=== PATIENT | female | born 1990 | race Caucasian/White ===

== ENCOUNTER 2018-03-29 00:38 | Emergency (ER) | payer MEDICAID, SELFPAY ==
[2018-03-29 00:41] VITALS: BP 133/93; PULSE 83; RESP 16; TEMP 36.6; O2SAT 100
--- NOTE | 2018-03-29 01:04 | W.ED.GENAD ---
Discharge Plan Disposition Patient Disposition: HOME Condition: Good Discharge Details Chief Complaint: Sorethroat Clinical Impression: Acute pharyngitis Primary Care Provider: Светлана Agee ED Provider: Juan A Ty Home Meds and New Rx's Prescriptions: No Action No Known Home Meds RF: 0 Discharge Instructions Instructions: Pharyngitis (ED) Additional Instructions: Rapid strep is negative. Culture has been sent. Rest and drink plenty of fluids. Salt water gargles and Cepacol lozenges will probably help with your sore throat. Ibuprofen and acetaminophen for discomfort. Return to the emergency department if you develop difficulty breathing, inability to swallow, persistent high fever, other concerns. Stand Alone Forms: Work Release Referrals: Светлана Agee [Primary Care Provider] - Medical Decision Making Patient is not febrile. She is in no distress. Oxygen saturations are 100%. She has erythema in the posterior oropharynx but no swelling or exudate. She does have cervical adenopathy. Centor criteria less then three. Rapid strep is negative. Would not treat at this point and will wait for culture. Discussed supportive care including fluids, gargles, lozenges, ibuprofen/acetaminophen. Return to ED for persistent high fever, difficulty breathing, inability to swallow. Follow-up with primary care next week if not getting better. HPI General Mode of arrival: ambulatory. Date/Time Provider Initiated Documentation: 03/29/18 00:50. Limitations to Documentation: no limitations. Information obtained by: patient. HPI Narrative: Patient presents to the emergency department with sore throat. Patient has had nasal congestion with very minimal cough for over a week. In the last day or two, she has been extremely fatigued. This afternoon she developed sore throat which has got worse overnight. She has a lot of nasal congestion. She has not had fever. She has not having difficulty breathing. She is able to swallow although it is uncomfortable. She has no rash. She has no nausea vomiting. Related Data Home Medications Medication Instructions Recorded Confirmed Unknown [No Known Home Meds] 03/29/18 03/29/18 Allergies Allergy/AdvReac Type Severity Reaction Status Date / Time No Known Allergies Allergy Unverified 03/29/18 00:43 General Stated Complaint: Sorethroat ODALIS: 4 Review of Systems Constitutional Denies chills, Reports fatigue, Denies fever(s), Denies headache(s), Reports malaise and Denies weakness Eyes Denies eye discharge and Denies eye pain ENT Denies otalgia, Denies facial pain, Denies headache(s), Denies hoarseness, Denies mouth lesions, Reports nasal congestion, Denies neck pain, Reports odynophagia, Reports post nasal drip, Reports sinus pressure, Reports sore throat and Denies throat swelling Cardiovascular Denies dyspnea Respiratory Denies cough and Denies dyspnea Gastrointestinal Denies abdominal pain, Denies nausea, Reports odynophagia and Denies vomiting Musculoskeletal Denies neck pain, Denies numbness and Denies tingling Neurologic Denies headache(s), Denies numbness, Denies tingling and Denies weakness Endocrine Reports fatigue Allergic/Immunologic Denies throat swelling PFSH History of section (Inactive) Social History Smoking/Tobacco Use Status: Former Tobacco Use Surgical History History of section (Inactive) Social History Smoking/Tobacco Use Status: Former Tobacco Use Exam Const General: cooperative, comfortable and no acute distress Orientation: alert and oriented x3 HENMT Head: normocephalic and atraumatic Ears: external ears normal and TM's normal bilaterally General nose exam: no nasal discharge Face and sinus: normal facial exam Mouth: oropharynx normal and moist mucous membranes Throat: tonsils normal, uvula midline, posterior oropharynx abnormal erythema; no edema and no exudates and no uvular edema Eyes Conjunctivae: conjunctivae normal Neck Neck: normal visual inspection, trachea midline, supple and lymphadenopathy Resp Effort & Inspection: normal respiratory effort Auscultation: clear to auscultation bilaterally Cardio Rate: regular rate Rhythm: regular rhythm Heart Sounds: S1 normal and S2 normal Skin Rashes: no rashes Neuro General: alert, oriented x3, no focal motor deficits and CN's II-XI intact bilaterally Course Vital Signs Temperature 97.9 F 03/29/18 00:41 Pulse 83 03/29/18 00:41 Respiratory Rate 16 03/29/18 00:41 Blood Pressure 133/93 H 03/29/18 00:41 Pulse Oximetry 100 03/29/18 00:41 Temperature 97.9 F 03/29/18 00:41 Temperature Source Skin 03/29/18 00:41 Pulse 83 03/29/18 00:41 Respiratory Rate 16 03/29/18 00:41 Respiratory Effort Non-Labored 03/29/18 00:42 Blood Pressure 133/93 H 03/29/18 00:41 Blood Pressure Position Sitting 03/29/18 00:41 Pulse Oximetry 100 03/29/18 00:41 Oxygen Delivery Method Room Air 03/29/18 00:41 Oxygen Flow Rate 0 03/29/18 00:41 Pain Level 7 03/29/18 00:41 Lab/Test Results Lab/Test Results: 03/29/18 00:50 Tonsil - Not Specified Streptococcus Screen ([facility]) - Pending POC Strep Test-[facility]EN(Rapid) Start: 03/29/18 00:50 Freq: Status: Active Protocol: Document 03/29/18 00:50 DARÍO (Rec: 03/29/18 00:50 DARÍO [id number]) Strep test-[facility]EN(Rapid)-POC POC-Strep test-ALEN (Rapid) Negative POC-Strep test-ALEN (Rapid) Negative
--- NOTE | 2018-03-29 01:17 | ED.GENADUL_ITS ---
Discharge Plan Disposition Patient Disposition: HOME Condition: Good Discharge Details Chief Complaint: Sorethroat Clinical Impression: Acute pharyngitis Primary Care Provider: Светлана Agee ED Provider: Juan A Ty Home Meds and New Rx's Prescriptions: No Action No Known Home Meds RF: 0 Discharge Instructions Instructions: Pharyngitis (ED) Additional Instructions: Rapid strep is negative. Culture has been sent. Rest and drink plenty of fluids. Salt water gargles and Cepacol lozenges will probably help with your sore throat. Ibuprofen and acetaminophen for discomfort. Return to the emergency department if you develop difficulty breathing, inability to swallow, persistent high fever, other concerns. Stand Alone Forms: Work Release Referrals: Светлана Agee [Primary Care Provider] - Medical Decision Making Patient is not febrile. She is in no distress. Oxygen saturations are 100%. She has erythema in the posterior oropharynx but no swelling or exudate. She does have cervical adenopathy. Centor criteria less then three. Rapid strep is negative. Would not treat at this point and will wait for culture. Discussed supportive care including fluids, gargles, lozenges, ibuprofen/ acetaminophen. Return to ED for persistent high fever, difficulty breathing, inability to swallow. Follow-up with primary care next week if not getting better. HPI General Mode of arrival: ambulatory . Date/Time Provider Initiated Documentation: 03/29/18 00:50 . Limitations to Documentation: no limitations . Information obtained by: patient . HPI Narrative: Patient presents to the emergency department with sore throat. Patient has had nasal congestion with very minimal cough for over a week. In the last day or two, she has been extremely fatigued. This afternoon she developed sore throat which has got worse overnight. She has a lot of nasal congestion. She has not had fever. She has not having difficulty breathing. She is able to swallow although it is uncomfortable. She has no rash. She has no nausea vomiting. Related Data Home Medications Medication Instructions Recorded Confirmed Unknown [No Known Home Meds] 03/29/18 03/29/18 Allergies Allergy/AdvReac Type Severity Reaction Status Date / Time No Known Allergies Allergy Unverified 03/29/18 00:43 General Stated Complaint: Sorethroat ODALIS: 4 Review of Systems Constitutional Denies chills, Reports fatigue, Denies fever(s), Denies headache(s), Reports malaise and Denies weakness Eyes Denies eye discharge and Denies eye pain ENT Denies otalgia, Denies facial pain, Denies headache(s), Denies hoarseness, Denies mouth lesions, Reports nasal congestion, Denies neck pain, Reports odynophagia, Reports post nasal drip, Reports sinus pressure, Reports sore throat and Denies throat swelling Cardiovascular Denies dyspnea Respiratory Denies cough and Denies dyspnea Gastrointestinal Denies abdominal pain, Denies nausea, Reports odynophagia and Denies vomiting Musculoskeletal Denies neck pain, Denies numbness and Denies tingling Neurologic Denies headache(s), Denies numbness, Denies tingling and Denies weakness Endocrine Reports fatigue Allergic/Immunologic Denies throat swelling PFSH History of section (Inactive) Social History Smoking/Tobacco Use Status: Former Tobacco Use Surgical History History of section (Inactive) Social History Smoking/Tobacco Use Status: Former Tobacco Use Exam Const General: cooperative, comfortable and no acute distress Orientation: alert and oriented x3 HENMT Head: normocephalic and atraumatic Ears: external ears normal and TM's normal bilaterally General nose exam: no nasal discharge Face and sinus: normal facial exam Mouth: oropharynx normal and moist mucous membranes Throat: tonsils normal, uvula midline, posterior oropharynx abnormal erythema; no edema and no exudates and no uvular edema Eyes Conjunctivae: conjunctivae normal Neck Neck: normal visual inspection, trachea midline, supple and lymphadenopathy Resp Effort & Inspection: normal respiratory effort Auscultation: clear to auscultation bilaterally Cardio Rate: regular rate Rhythm: regular rhythm Heart Sounds: S1 normal and S2 normal Skin Rashes: no rashes Neuro General: alert, oriented x3, no focal motor deficits and CN's II-XI intact bilaterally Course Vital Signs Temperature 97.9 F 03/29/18 00:41 Pulse 83 03/29/18 00:41 Respiratory Rate 16 03/29/18 00:41 Blood Pressure 133/93 H 03/29/18 00:41 Pulse Oximetry 100 03/29/18 00:41 Temperature 97.9 F 03/29/18 00:41 Temperature Source Skin 03/29/18 00:41 Pulse 83 03/29/18 00:41 Respiratory Rate 16 03/29/18 00:41 Respiratory Effort Non-Labored 03/29/18 00:42 Blood Pressure 133/93 H 03/29/18 00:41 Blood Pressure Position Sitting 03/29/18 00:41 Pulse Oximetry 100 03/29/18 00:41 Oxygen Delivery Method Room Air 03/29/18 00:41 Oxygen Flow Rate 0 03/29/18 00:41 Pain Level 7 03/29/18 00:41 Lab/Test Results Lab/Test Results: 03/29/18 00:50 Tonsil - Not Specified Streptococcus Screen ([facility]) - Pending POC Strep Test-[facility]EN(Rapid) Start: 03/29/18 00: 50 Freq: Status: Active Protocol: Document 03/29/18 00:50 DARÍO (Rec: 03/29/18 00:50 DARÍO [id number]) Strep test-[facility]EN(Rapid)-POC POC-Strep test-ALEN (Rapid) Negative POC-Strep test-ALEN (Rapid) Negative
== END 2018-03-29 01:09 | disposition home or self-care (01) ==
PROVIDERS: Emergency Provider Emergency Medicine; PCP Nurse Practitioner
DX: J02.9 Acute pharyngitis, unspecified (principal)
CPT/HCPCS: 87880; 99282; 87081

== ENCOUNTER 2018-08-16 07:51 | Emergency (ER) | payer MEDICAID, SELFPAY ==
[2018-08-16 07:57] VITALS: BP 146/79; PULSE 79; RESP 20; TEMP 36.7; O2SAT 98
[2018-08-16] MEDS: predniSONE 20 MG TAB 60 MG PO (08:04)
[2018-08-16 08:05] VITALS: RESP 4
[2018-08-16] MEDS: Albuterol/Ipratropium 3 ML UPD VIAL UPD (08:05)
--- NOTE | 2018-08-16 08:11 | ED.GENADUL_ITS ---
Discharge Plan Disposition Patient Disposition: HOME Condition: Good Discharge Details Chief Complaint: RespSymp Clinical Impression: URI with cough and congestion Primary Care Provider: Светлана Agee ED Provider: Rolan Paul Home Meds and New Rx's Prescriptions: New prednisone 50 MG tablet 50 mg PO DAILY Qty: 5 RF: 0 Discharge Instructions Instructions: Upper Respiratory Infection (ED) Additional Instructions: Please take the inhaler and steroids as directed. Please do not resume smoking. If you notice any worsening of your symptoms, or any new symptoms such as vomiting, diarrhea, fever, chills, shortness of breath, chest pain, numbness, weakness, or fainting , please return immediately to the emergency department for reevaluation. Please follow up with your primary care provider as soon as possible for reassessment and reevaluation. As always, it was a pleasure participating in your medical care today. Stand Alone Forms: Work Release Referrals: Светлана Agee [Primary Care Provider] - Medical Decision Making This is a pleasant 28-year-old female who presents with cough and congestion for the last 4 days. She denies any fever. She denies any concerning red flags suggestive of a PE or severe respiratory distress. She denies any fever. Her symptoms have been greater than 4 days, I do not think that there is any indication for active flu testing at this time. Physical exam demonstrates notable wheezes throughout, which corresponds well with her chronic smoking history and her symptoms suggestive of bronchitis and URI. She demonstrates no evidence of rales or rhonchi on exam, vital signs are notably reassuring with no tachypnea, tachycardia, or hypoxemia. Do not see any emergent indication for x-ray, laboratory work-up or CT scan at this time. With her notable wheezes we will give steroids and breathing treatments to improve this, we have recommended smoking cessation. Will reevaluate after breathing treatment. Due to her young age reassuring vital signs, no evidence of clinical pneumonia on exam or history, with her otherwise looking clinically well I do not think that there is an indication for immediate antibiotics or hospital admission at this time. Patient is feeling much better after breathing treatment and steroid. Vital signs are still notably reassuring. Bedside portable limited ultrasound demonstrates no evidence of B-lines, or gross infiltrate. Patient can be discharged home with close follow-up. We discussed red flags which return. She will be given an inhaler and prednisone for home use. We have instructed her on how to use the spacer I have extensively reviewed the treatment plan and discharge instructions with the patient. I have addressed all patient concerns at this time. The patient was made aware of what symptoms to monitor for that would warrant a return to the emergency department. Discussed the plan with the patient, they demonstrate verbal understanding and agreement with our assessment and plan at this time. HPI General Date/Time Provider Initiated Documentation: 08/16/18 07:55 . HPI Narrative: This is a 28-year-old female with no significant past medical history except for chronic tobacco abuse smoking half pack per day, who presents today for cough for the last 4 days. She describes it is relatively nonproductive and occasionally there is white sputum though. She denies any hemoptysis. She denies any chest pain, tearing sensation in her chest, fever, chills, vomiting. She does admit to occasional loose stool. 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 Denies PE risk factors such as recent long car rides, immobilization, recent surgery, prior history of DVT or PE, family history of PE or DVT, morbid obesity, exogenous estrogen and smoking, hemoptysis, history of cancer. She denies any history of early cardiac disease. She denies any history of asthma or regular inhaler use. She has no other complaints at this time. Related Data Home Medications Medication Instructions Recorded Confirmed prednisone 50 mg PO DAILY #5 tab 08/16/18 Previous Rx's Medication Instructions Recorded prednisone 50 mg PO DAILY #5 tab 08/16/18 Allergies Allergy/AdvReac Type Severity Reaction Status Date / Time No Known Allergies Allergy Unverified 03/29/18 00:43 General Stated Complaint: RespSymp ODALIS: 3 Review of Systems Review of Systems All systems reviewed & are unremarkable except as noted in HPI and below PFSH Social History Smoking/Tobacco Use Status: Current every day Tobacco Type: cigarettes Smoking cigarettes per day: 10 Alcohol Intake: current Alcohol Intake frequency: a few times a month Drug use: Daily Substance use type: marijuana Do you feel safe at home: Yes Do you feel safe in your relationship?: Yes Exam Narrative Exam Narrative: 1.Const: Well-nourished, Well-developed, appearing stated age 2.Eyes: PERRL, no conjunctival injection, and symmetrical lids. 3.ENT: Atraumatic external nose and ears. Moist MM. Neck: Symmetric, trachea midline, No thyromegaly. 4.CVS: +S1/S2, No murmurs or gallops. Peripheral pulses 2+ and equal in all extremities. Brisk capillary refill in all extremities. 5.RESP: Unlabored respiratory effort. Notable wheezes throughout, no rhonchi or rales. No intercostal retractions per 6.GI: Soft, Nontender/Nondistended, No hepatosplenomegaly. No guarding or rebound. 7.MSK: Normocephalic/Atraumatic, Extremities w/o deformity or ttp No cyanosis or clubbing, Normal movement of all extremities 8.Skin: Warm, Dry. No rashes or lesions. 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 Sensation grossly intact, no focal neurologic deficits. 10.Psych: (AAO) x3. Appropriate mood and affect Course Vital Signs Temperature 36.7 C 08/16/18 07:57 Pulse 79 08/16/18 07:57 Respiratory Rate 20 08/16/18 07:57 Blood Pressure 146/79 H 08/16/18 07:57 Pulse Oximetry 98 08/16/18 07:57 Temperature 36.7 C 08/16/18 07:57 Temperature Source Temporal Artery Scan 08/16/18 07:57 Pulse 79 08/16/18 07:57 Respiratory Rate 20 08/16/18 07:57 Respiratory Effort Nasal Flaring 08/16/18 07:59 Blood Pressure 146/79 H 08/16/18 07:57 Blood Pressure Position Sitting 08/16/18 07:57 Pulse Oximetry 98 08/16/18 07:57 Oxygen Delivery Method Room Air 08/16/18 07:57 Oxygen Flow Rate 0 08/16/18 07:57 Pain Level 0 08/16/18 07:57
[2018-08-16] MEDS: Albuterol HFA 8 GM 60 PUFF INH IH (08:51)
[2018-08-16] MEDS: Inhaler, Assist Device 1 EACH MC (08:52)
[2018-08-16 09:00] VITALS: BP 132/72; PULSE 76; RESP 18; TEMP 36.7; O2SAT 97
== END 2018-08-16 09:05 | disposition home or self-care (01) ==
PROVIDERS: Emergency Provider Student in an Organized Health Care Education/Training Program; PCP Nurse Practitioner
DX: J06.9 Acute upper respiratory infection, unspecified (principal); R05 Cough; F17.210 Nicotine dependence, cigarettes, uncomplicated
CPT/HCPCS: 94640; 99283; J7512; J7620

== ENCOUNTER 2018-11-28 14:32 | Emergency (ER) | payer MEDICAID, SELFPAY ==
[2018-11-28 14:37] VITALS: BP 109/71; PULSE 95; RESP 20; TEMP 36.7; O2SAT 100
--- NOTE | 2018-11-28 14:48 | DI.CT_ITS ---
SYMPTOM/DIAGNOSIS: RLQ PAIN ABDOMINAL AND PELVIC CT: 11/28 CT examination of the abdomen and pelvis was performed with a bolus infusion of 100 cc Omnipaque 350. Images obtained through the lung bases are unremarkable. There is question of mild hepatosplenomegaly. No focal hepatic or splenic abnormality seen. Pancreas appears normal. Gallbladder and bile ducts appear normal. Adrenals and kidneys appear normal. No evidence of urinary tract calcification or obstruction. Abdominal aorta is of normal diameter and no major vascular abnormality seen. Tiny fat containing umbilical hernia noted. No other significant abdominal wall hernia seen. No abdominal or pelvic adenopathy. Appendix is normal. No evidence of diverticulitis or bowel obstruction. TRANSLATOR structures appear intact as visualized. CONCLUSION: Negative abdominal and pelvic CT.
--- NOTE | 2018-11-28 14:50 | ED.GENADUL_ITS ---
Discharge Plan Disposition Patient Disposition: HOME Condition: Stable Discharge Details Chief Complaint: Abd Prob Clinical Impression: Abdominal pain Primary Care Provider: Светлана Agee ED Provider: [facility] Home Meds and New Rx's Prescriptions: No Action prednisone 50 MG tablet 50 mg PO DAILY Qty: 5 RF: 0 Discharge Instructions Instructions: Abdominal Pain (ED) Additional Instructions: Please return immediately to the emergency department if you develop any new or worsening symptoms or if you become otherwise concerned. It is extremely important that you call as soon as possible to make an appointment to be seen in follow-up this visit by your primary care doctor. Referrals: Светлана Agee [Primary Care Provider] - Discharge Data Discharge Date/Time-TO BE ENTERED AT DEPARTURE: 11/28/18 18:05 Medical Decision Making <Helen Castro MD - Last Filed: 12/01/18 21:53> Macie Luna is a 28-year-old woman with history of depression, x2, right inguinal hernia repair with mesh resented to the emergency department with 30 minutes of severe sudden onset right lower quadrant pain. On exam patient appears very uncomfortable. She has tenderness to palpation in the right lower quadrant, positive McBurney's point tenderness, positive rebound. Exam/history is not consistent with sepsis, acute aortic pathology. Concern for appendicitis versus kidney stone versus ovarian cyst rupture versus ovarian torsion versus ectopic versus other. [id number] bedside ultrasound with negative fast plan for screening labs, UA, urine , pelvic US (if neg CT abdomen/pelvis), IV, IV fluid hydration, IV morphine, telemetry. 15:42 Patient requested that she only be given 2 mg of morphine because she is not sure how will affect her she has not had in the past. Order was for 4 mg, 2 mg wasted by nursing. Patient with inadequate pain control after 2 mg of morphine, plan for 4 additional milligrams for a total of 6 mg. Appears more comfortable. Patient has not been able to urinate, awaiting hCG serum testing. Patient is hemodynamically stable. Plan for ultrasound, if negative likely CT. Patient reporting continued severe pain. Ultrasound negative plan for CT. CT negative for acute process. On reassessment patient reports that pain has resolved. Unclear etiology of pain at this time, possible passed stone versus bowel gas pain versus other. Awaiting urinalysis. Anticipating discharge, I had a lengthy discussion with the patient regarding return to emergency department precautions, importance of outpatient follow-up, and home care. Patient verbalized understanding the plan was amenable. All questions were answered. Prior to discharge clear plan for outpatient follow-up was established. Patient signed out to [facility] Le with urinalysis pending. Medical Records Medical records reviewed: Yes I reviewed the patient's medical records. Imaging Data Radiologic Study: Attestation: I personally reviewed and interpreted this imaging study as follows: Radiologist's impression: EXAM: US Pelvis Complete, Transabdominal EXAM DATE/TIME: 11/28/2018 4:03 PM CLINICAL HISTORY: 28 years old, female; Pelvic pain; Prior surgery; Surgery date: 6+ months; Surgery type: 2 c-sections; Hernia repair TECHNIQUE: Imaging protocol: Real-time transabdominal pelvic ultrasound with image documentation. Complete exam. COMPARISON: US PELVIS TRANSVAG 07/29/2015 3:41 PM FINDINGS: Uterus/cervix: The uterus measures 13.2 x 5.1 x 7.8 cm. The uterus is diffusely heterogeneous. No discrete mass. Endometrium 2.8 mm Right adnexa: Right ovary 2.7 x 1.3 x 1.8 cm 1.9 cm cyst in the right ovary Peak systolic velocity in the right ovary is 20 cm/s. Left adnexa: Left ovary 3.6 x 1.9 x 1.9 cm Peak systolic velocity in the left ovary is 20 cm/s Free fluid: None. Bladder: Normal. Right kidney: Right kidney 10.5 cm . No hydronephrosis Left kidney: Left kidney 11 cm No hydronephrosis Appendix: The appendix is not identified. IMPRESSION: No acute process EXAM: CT Abdomen and Pelvis With Contrast EXAM DATE/TIME: 11/28/2018 2:50 PM CLINICAL HISTORY: 28 years old, female; Other: Rlq pain; Prior surgery; Surgery date: 6+ months; Surgery type: Mesh surgery in 2011 TECHNIQUE: Imaging protocol: Axial computed tomography images of the abdomen and pelvis with intravenous contrast. Coronal and sagittal reformatted images were created and reviewed. Radiation optimization: All CT scans at this facility use at least one of these dose optimization techniques: automated exposure control; mA and/or kV adjustment per patient size (includes targeted exams where dose is matched to clinical indication); or iterative reconstruction. Contrast material: OMNIPAQUE 350;Contrast volume: 100 ml;Contrast route: IV; COMPARISON: CT ABD PELVIS WITH CONTRAST 02/05/2016 9:19 AM FINDINGS: Heart: Cardiomegaly Liver: Hepatomegaly 19 cm Gallbladder and bile ducts: Normal. No calcified stones. No ductal dilation. Pancreas: Normal. No ductal dilation. Spleen: Normal. No splenomegaly. Adrenals: Normal. No mass. Kidneys and ureters: Normal. No hydronephrosis. Stomach and bowel: Normal. No obstruction. No mucosal thickening. Appendix: Normal appendix Intraperitoneal space: Normal. No free air. No significant fluid collection. Vasculature: Normal. No abdominal aortic aneurysm. Lymph nodes: Normal. No enlarged lymph nodes. Bladder: Unremarkable as visualized. Reproductive: Unremarkable as visualized. Bones/joints: No acute fracture. No dislocation. Soft tissues: Unremarkable. IMPRESSION: No acute process Lab Data Lab results reviewed: Yes I reviewed the patient's lab results. Laboratory Tests Range/Units 11/28/18 11/28/18 11/28/18 15:15 15:15 15:15 WBC (4.4-10.8) k/cumm 10.37 RBC (4.00-5.20) m/cumm 5.07 Hgb (12.0-15.5) g/dL 13.8 Hct (36.0-46.0) % 41.9 MCV (80-95) fL 82.6 MCH (27.0-33.0) pg 27.2 MCHC (32.0-36.0) g/dL 32.9 RDW (11.7-14.6) % 14.1 Plt Count (130-400) x1000/uL 244 MPV (8.0-11.0) fL 11.5 H Immature Gran % 0.4 Neutrophils % 58.8 Lymphocytes % 34.4 Monocytes % 5.5 Eosinophils % 0.8 Basophils % 0.1 Absolute Neutrophils (1.2-6.7) k/cumm 6.10 Absolute Lymphocytes (1.2-3.4) k/cumm 3.57 H Absolute Monocytes (0.11-0.7) k/cumm 0.57 Absolute Eosinophils (0.0-0.7) k/cumm 0.08 Absolute Basophils (0.0-0.2) k/cumm 0.01 Sodium (136-145) mmol/L 138 Potassium (3.5-5.1) mmol/L 4.2 Chloride (98-107) mmol/L 102 Carbon Dioxide (21.0-32.0) mmol/L 23.7 Anion Gap (3-11) mmol/L 12.3 H BUN (7-18) mg/dL 11 Creatinine (0.55-1.02) mg/dL 0.76 Estimated GFR/1.73 m2 (mL/min/1.73m2) >= 60.00 Glucose (70-100) mg/dL 91 Calcium (8.5-10.1) mg/dL 9.2 Total Bilirubin (0.2-1.0) mg/dL 0.2 AST (15-37) U/L 13 L ALT (12-78) U/L 22 Alkaline Phosphatase (46-116) U/L 84 Total Protein (6.4-8.2) g/dL 7.5 Albumin (3.4-5.0) g/dL 4.0 Lipase (73-393) U/L 86 Beta HCG, Quant (1-3) mIU/mL Range/Units 11/28/18 15:15 WBC (4.4-10.8) k/cumm RBC (4.00-5.20) m/cumm Hgb (12.0-15.5) g/dL Hct (36.0-46.0) % MCV (80-95) fL MCH (27.0-33.0) pg MCHC (32.0-36.0) g/dL RDW (11.7-14.6) % Plt Count (130-400) x1000/uL MPV (8.0-11.0) fL Immature Gran % Neutrophils % Lymphocytes % Monocytes % Eosinophils % Basophils % Absolute Neutrophils (1.2-6.7) k/cumm Absolute Lymphocytes (1.2-3.4) k/cumm Absolute Monocytes (0.11-0.7) k/cumm Absolute Eosinophils (0.0-0.7) k/cumm Absolute Basophils (0.0-0.2) k/cumm Sodium (136-145) mmol/L Potassium (3.5-5.1) mmol/L Chloride (98-107) mmol/L Carbon Dioxide (21.0-32.0) mmol/L Anion Gap (3-11) mmol/L BUN (7-18) mg/dL Creatinine (0.55-1.02) mg/dL Estimated GFR/1.73 m2 (mL/min/1.73m2) Glucose (70-100) mg/dL Calcium (8.5-10.1) mg/dL Total Bilirubin (0.2-1.0) mg/dL AST (15-37) U/L ALT (12-78) U/L Alkaline Phosphatase (46-116) U/L Total Protein (6.4-8.2) g/dL Albumin (3.4-5.0) g/dL Lipase (73-393) U/L Beta HCG, Quant (1-3) mIU/mL < 1 L <SUZANNA Bueno - Last Filed: 11/28/18 17:33> Care transition to mysself from Dr. Castro with UA pending. Urinalysis without significant abnormality. No RBCs, negative for nitrites, negative for leukocyte esterase. Patient remains asymptomatic, plan to discharge to home. All of her questions and concerns were addressed, she is in agreement iwth this plan. HPI <Helen Castro MD - Last Filed: 12/01/18 21:53> General Mode of arrival: ambulatory . Date/Time Provider Initiated Documentation: 11/28/18 14:37 . Limitations to Documentation: no limitations . Information obtained by: patient, RN notes reviewed and old records reviewed . HPI Narrative: Macie Luna is a 28 y/o woman with history of depression, C- section x2, right sided inguinal hernia repair with mesh presenting to the emergency department with abdominal pain. Patient reports that she was at rest while here at work when she developed sudden onset sharp lower abdominal pain a proximally 30 minutes prior to arrival. Patient reports the pain is worse in the right lower quadrant that radiates to the left lower quadrant and around her back. Patient reports that she has never had similar symptoms in the past. No fever, no vomiting, no diarrhea, no constipation, no dysuria. Was previously in her usual state of health. Related Data Home Medications Medication Instructions Recorded Confirmed prednisone 50 mg PO DAILY #5 tab 08/16/18 Previous Rx's Medication Instructions Recorded prednisone 50 mg PO DAILY #5 tab 08/16/18 Allergies Allergy/AdvReac Type Severity Reaction Status Date / Time No Known Allergies Allergy Unverified 03/29/18 00:43 General Stated Complaint: Abd Prob ODALIS: 2 Review of Systems <Helen Castro MD - Last Filed: 12/01/18 21:53> Review of Systems Constitutional: denies fevers Eyes: denies eye pain ENT: denies facial pain, dental pain, sore throat Cardiovascular: denies chest pain Respiratory: denies SOB, cough GI: denies vomiting, diarrhea, reports abdominal pain : denies flank pain, dysuria MSK: denies back pain, neck pain, arthralgias, myalgias Skin: denies rash Neuro: denies headaches, numbness, weakness PFSH <Helen Castro MD - Last Filed: 12/01/18 21:53> Social History Smoking/Tobacco Use Status: Current every day Tobacco Type: cigarettes Alcohol Intake: current Alcohol Intake frequency: a few times a month Drug use: Daily Substance use type: marijuana Do you feel safe at home: Yes Do you feel safe in your relationship?: Yes Exam <Helen Castro MD - Last Filed: 12/01/18 21:53> Narrative Exam Narrative: Constitutional: well and [id number], appears uncomfortable but otherwise conversing normally HENT: head atraumatic/normocephalic/normal inspection, mucous membranes moist Eyes: conjunctiva normal, sclera normal, pupils 3mm b/l Neck: no stridor, normal ROM, trachea midline Chest: normal inspection Resp: normal work of breathing, LCTAB Cardio: normal rate, normal rhythm, no murmur appreciated GI: abdomen soft, non-distended, tender right lower quadrant/right pelvic area with positive McBurney's point tenderness and rebound Back: normal inspection, no rash Skin: warm, dry, normal color, no rash Neuro: alert, not altered, grossly non-focal, normal tone Ext: no edema Psych: normal mood, normal affect, normal behavior Course <Helen Castro MD - Last Filed: 12/01/18 21:53> Vital Signs Temperature 36.7 C 11/28/18 14:37 Pulse 95 H 11/28/18 14:37 Respiratory Rate 20 11/28/18 14:37 Blood Pressure 109/71 11/28/18 14:37 Pulse Oximetry 100 11/28/18 14:37 Temperature 36.7 C 11/28/18 14:37 Temperature Source Skin 11/28/18 14:37 Pulse 95 H 11/28/18 14:37 Respiratory Rate 20 11/28/18 14:37 Blood Pressure 109/71 11/28/18 14:37 Pulse Oximetry 100 11/28/18 14:37 Oxygen Delivery Method Room Air 11/28/18 14:37 Oxygen Flow Rate 0 11/28/18 14:37 Pain Level 10 11/28/18 14:37 Sign Out <Helen Castro MD - Last Filed: 12/01/18 21:53> Sign Out Data: Sign Out Comment: Patient signed out to Carlie Gonzalez at time of shift change with urinalysis pending Last updated by Helen Castro MD at 11/28/18 17:07
--- NOTE | 2018-11-28 14:59 | DI.US_ITS ---
SYMPTOM/DIAGNOSIS: RLQ PAIN, ? RIGHT OVARIAN TORSION PELVIC ULTRASOUND: 11/28 Pelvic ultrasound was performed transabdominally only. Please see accompanying data sheet for measurements of the pelvic structures. Uterus is unremarkable in appearance. No free fluid seen in the cul de sac. Ovaries grossly unremarkable by abdominal scanning criteria. Vascular flow to the ovaries appears symmetrical CONCLUSION: Transabdominal examination only. No gross pelvic abnormality. If there is a clinical suspicion of ovarian torsion transvaginal examination would be recommended.
[2018-11-28] MEDS: Ondansetron 4 MG/2 ML VIAL (15:01)
[2018-11-28] MEDS: Normal Saline 1,000 ML 1000 ML IV (15:01)
--- NOTE | 2018-11-28 15:21 | NUR.NOTE ---
Nursing Note: PT administered 2mg of Morphine IV. Pt stated that she was concerned about recieving 4mg at one time. MD hummel made aware. 2mg wasted with Quan ROMAN. Documented in Pyxis.
[2018-11-28 15:32] LABS: Abs Immature Grans 0.04 k/cumm (0.0-0.09); Absolute Basophil Count 0.01 k/cumm (0.0-0.2); Absolute Eosinophil Count 0.08 k/cumm (0.0-0.7); Absolute Lymphocyte Count 3.57 k/cumm (1.2-3.4); Absolute Monocyte Count 0.57 k/cumm (0.11-0.7); Basophils % 0.1; Eosinophils % 0.8; HCT 41.9 % (36.0-46.0); HGB 13.8 g/dL (12.0-15.5); Immature Grans % 0.4; Lymphocytes % 34.4; Mean Corp. HGB Concentration 32.9 g/dL (32.0-36.0); Mean Corpuscular Hemoglobin 27.2 pg (27.0-33.0); Mean Corpuscular Volume 82.6 fL (80-95); Mean Platelet Volume 11.5 fL (8.0-11.0); Monocytes % 5.5; Neutrophils % 58.8; Platelet Count 244 x1000/uL (130-400); RBC 5.07 m/cumm (4.00-5.20); RBC Distribution Width 14.1 % (11.7-14.6); White Blood Cell Count 10.37 k/cumm (4.4-10.8)
--- NOTE | 2018-11-28 15:34 | NUR.NOTE ---
Nursing Note: Per MD Castro request PT has recieved a total of 6mg IVP morphine.
[2018-11-28 15:51] LABS: Lipase 86 U/L (73-393)
[2018-11-28 15:54] LABS: ALT 22 U/L (12-78); AST 13 U/L (15-37); Alkaline Phosphatase 84 U/L (46-116); Anion Gap 12.3 mmol/L (3-11); BUN 11 mg/dL (7-18); Bilirubin, Total 0.2 mg/dL (0.2-1.0); CO2 23.7 mmol/L (21.0-32.0); CREATININE 0.76 mg/dL (0.55-1.02); Calcium 9.2 mg/dL (8.5-10.1); Chloride 102 mmol/L (98-107); Glucose 91 mg/dL (70-100); Potassium 4.2 mmol/L (3.5-5.1); Sodium 138 mmol/L (136-145); Total Protein 7.5 g/dL (6.4-8.2)
[2018-11-28 16:08] LABS: HCG Quant, Pregnancy < 1 mIU/mL (1-3)
[2018-11-28] MEDS: Normal Saline Flush 10 ML SYR IVP (16:32)
[2018-11-28] MEDS: Omnipaque 350 MG/ML 100 ML BTL IJ (16:32)
--- NOTE | 2018-11-28 16:35 | DI.VRAD_ITS ---
EXAM: US Pelvis Complete, Transabdominal EXAM DATE/TIME: 11/28/2018 4:03 PM CLINICAL HISTORY: 28 years old, female; Pelvic pain; Prior surgery; Surgery date: 6+ months; Surgery type: 2 c-sections; Hernia repair TECHNIQUE: Imaging protocol: Real-time transabdominal pelvic ultrasound with image documentation. Complete exam. COMPARISON: US PELVIS TRANSVAG 07/29/2015 3:41 PM FINDINGS: Uterus/cervix: The uterus measures 13.2 x 5.1 x 7.8 cm. The uterus is diffusely heterogeneous. No discrete mass. Endometrium 2.8 mm Right adnexa: Right ovary 2.7 x 1.3 x 1.8 cm 1.9 cm cyst in the right ovary Peak systolic velocity in the right ovary is 20 cm/s. Left adnexa: Left ovary 3.6 x 1.9 x 1.9 cm Peak systolic velocity in the left ovary is 20 cm/s Free fluid: None. Bladder: Normal. Right kidney: Right kidney 10.5 cm . No hydronephrosis Left kidney: Left kidney 11 cm No hydronephrosis Appendix: The appendix is not identified. IMPRESSION: No acute process Dictated and Authenticated by: Raissa Azul MD. Ordering:JAVIER Cervantes MD
--- NOTE | 2018-11-28 16:41 | DI.VRAD_ITS ---
EXAM: CT Abdomen and Pelvis With Contrast EXAM DATE/TIME: 11/28/2018 2:50 PM CLINICAL HISTORY: 28 years old, female; Other: Rlq pain; Prior surgery; Surgery date: 6+ months; Surgery type: Mesh surgery in 2011 TECHNIQUE: Imaging protocol: Axial computed tomography images of the abdomen and pelvis with intravenous contrast. Coronal and sagittal reformatted images were created and reviewed. Radiation optimization: All CT scans at this facility use at least one of these dose optimization techniques: automated exposure control; mA and/or kV adjustment per patient size (includes targeted exams where dose is matched to clinical indication); or iterative reconstruction. Contrast material: OMNIPAQUE 350;Contrast volume: 100 ml;Contrast route: IV; COMPARISON: CT ABD PELVIS WITH CONTRAST 02/05/2016 9:19 AM FINDINGS: Heart: Cardiomegaly Liver: Hepatomegaly 19 cm Gallbladder and bile ducts: Normal. No calcified stones. No ductal dilation. Pancreas: Normal. No ductal dilation. Spleen: Normal. No splenomegaly. Adrenals: Normal. No mass. Kidneys and ureters: Normal. No hydronephrosis. Stomach and bowel: Normal. No obstruction. No mucosal thickening. Appendix: Normal appendix Intraperitoneal space: Normal. No free air. No significant fluid collection. Vasculature: Normal. No abdominal aortic aneurysm. Lymph nodes: Normal. No enlarged lymph nodes. Bladder: Unremarkable as visualized. Reproductive: Unremarkable as visualized. Bones/joints: No acute fracture. No dislocation. Soft tissues: Unremarkable. IMPRESSION: No acute process Dictated and Authenticated by: Raissa Azul MD. Ordering:JAVIER Cervantes MD
[2018-11-28 17:25] LABS: Bilirubin Negative (Negative); Blood Negative (Negative); Clarity Clear (Clear); Glucose Negative (Negative); Ketones Negative (Negative); Leukocyte Esterase Negative (Negative); Nitrite Negative (Negative); Urobilinogen 0.2 EU/dL (Up TO 0.2); pH 7.5 (5-8)
[2018-11-28 18:25] VITALS: BP 112/64; PULSE 88; RESP 16; TEMP 36.8; O2SAT 99
== END 2018-11-28 18:05 | disposition home or self-care (01) ==
PROVIDERS: Student in an Organized Health Care Education/Training Program; Emergency Provider Physician Assistant; PCP Nurse Practitioner
DX: R10.9 Unspecified abdominal pain (principal); Z98.890 Other specified postprocedural states
CPT/HCPCS: 36415; 80053; 83690; 96361; 96374; 96376; 99285; 74177; 76856; 81003; 84702; 85025; 99284; J2405; J3490

== ENCOUNTER 2019-08-14 12:12 | Outpatient (REF) | payer MEDICAID, SELFPAY ==
[2019-08-16 09:05] LABS: COVID-19 RT-PCR UVMMC Result Negative (Negative)
== END 2019-08-14 12:32 ==
LOC: NCHCN 12:12
PROVIDERS: PCP Nurse Practitioner; Visit Provider Physician Assistant
DX: Z11.59 Encounter for screening for other viral diseases (principal)
CPT/HCPCS: U0003

== ENCOUNTER 2019-12-18 19:50 | Emergency (ER) | payer MEDICAID, SELFPAY ==
[2019-12-18 20:02] VITALS: BP 125/81; PULSE 83; RESP 20; TEMP 36.5; O2SAT 100
--- NOTE | 2019-12-18 20:15 | DI.RAD_ITS ---
EXAM: XR ANKLE LT COMPLETE CLINICAL HISTORY: twist/fall TECHNIQUE: 2D digital imaging was performed. COMPARISON: No exams were available for comparison FINDINGS: BONES: No acute fracture is present. No bony destructive lesion is seen. There is a round 5 mm well c orticated osseous density at the tip of the lateral malleolus which appears old. There is a tiny 2 m m density lateral to the previously noted old avulsed fracture fragment. This too likely is resultan t from old injury or small accessory ossicle but an acute fracture cannot be entirely excluded. JOINTS:The ankle mortise is normally aligned. SOFT TISSUE: Soft tissue swelling about the ankle. No radiopaque foreign body. IMPRESSION: 2 mm density inferior to the lateral malleolus. This likely reflects an old injury. However, an acu te fracture cannot be entirely excluded. Otherwise, no acute fracture or dislocation is seen. DATA REPOSITORY: RADIATION DOSE DELIVERED:
--- NOTE | 2019-12-18 20:19 | W.ED.GENAD ---
Discharge Plan Disposition Patient Disposition: HOME Condition: Stable Discharge Details Chief Complaint: Orthopedic Clinical Impression: Avulsion fracture of ankle Primary Care Provider: Светлана Agee ED Provider: Mahamed Jackson Home Meds and New Rx's Prescriptions: New oxycodone-acetaminophen [Percocet] 5-325 mg tablet 1 tab PO TID PRNQty: 8 RF: 0 Discontinued prednisone 50 MG tablet 50 mg PO DAILY Qty: 5 RF: 0 Discharge Instructions Instructions: Ankle Fracture (ED) Additional Instructions: Rest, elevate, cool compresses every 2 hours for 20 minutes. Wear walking boot and use crutches as needed until reevaluation with orthopedics. I would not begin weightbearing as tolerated until you have been cleared to do so. [id number] Motrin as directed. Percocet as directed, may cause drowsiness and/or constipation. Please watch for new or worsening symptoms and return to the ER for any concerns. I have placed you on the orthopedic list, please contact their office tomorrow for prompt outpatient reevaluation Stand Alone Forms: Work Release Referrals: Omi Prado MD [ [facility] STAFF PHYSICIAN] - Medical Decision Making 29-year-old female presents complaining of left ankle pain after falling and twisting. Point tenderness along the lateral malleolus, posterior aspect. She is not really able to bear weight. She is tearful and anxious. She is able to both plantar and dorsiflex fully, Achilles intact. Will obtain x-ray to rule any bony involvement X-ray read by virtual radiology as a 5 mm well-corticated osseous findings along the distal margin of the lateral malleolus with an appearance suggesting an old avulsion segment or accessory ossicle. A 2 mm adjacent apparently well-corticated osseous findings along the distal margin of the lateral malleolus. An old avulsion fragment or small accessory ossicle is suspected. An acute avulsion fragment is considered less likely but not definitively excluded. Otherwise no acute fracture or dislocation is seen X-ray discussed with patient. She reports that she has sprained the ankle multiple times but no known fracture. Given her degree of discomfort, point tenderness, I do believe that treating her for a avulsion fracture is certainly reasonable. She will be placed into a walking boot, crutches, initially nonweightbearing and when she sees orthopedics hopefully weightbearing as tolerated. She is given a single Percocet here in the ER. I will give her a short-term prescription for analgesia. She was placed on the orthopedic list and she will contact them tomorrow to help expedite care. Medical Records Medical records reviewed: Yes I reviewed the patient's medical records. HPI General Mode of arrival: ambulatory. Date/Time Provider Initiated Documentation: 12/18/19 19:51. Limitations to Documentation: no limitations. Information obtained by: patient. HPI Narrative: This is a 29-year-old female who reports just prior to arrival she was running, slipped on grass, falling and twisting her left ankle. She denies any other injuries. Reports the pain is severe and worse with movement or trying to bear weight. Denies numbness, tingling, weakness. Has not taken any medication for her symptoms. Related Data Home Medications Medication Instructions Recorded Confirmed oxycodone-acetaminophen [Percocet] 1 tab PO TID PRN #8 tab 12/18/19 Previous Rx's Medication Instructions Recorded oxycodone-acetaminophen [Percocet] 1 tab PO TID PRN #8 tab 12/18/19 Allergies Allergy/AdvReac Type Severity Reaction Status Date / Time No Known Allergies Allergy Unverified 03/29/18 00:43 General Stated Complaint: Orthopedic ODALIS: 4 Review of Systems Constitutional Constitutional: Denies headache(s) and Denies weakness ENT Ears, Nose, Mouth, and Throat: Denies headache(s) Gastrointestinal Gastrointestinal: Denies nausea Musculoskeletal Musculoskeletal: Denies numbness and Denies tingling Neurologic Neurologic: Denies headache(s), Denies numbness, Denies tingling and Denies weakness [facility] Surgical History History of section (Inactive) Social History Smoking/Tobacco Use Status: Current every day Tobacco Type: cigarettes Alcohol Intake: current Alcohol Intake frequency: a few times a month Drug use: Daily Substance use type: marijuana Do you feel safe at home: Yes Do you feel safe in your relationship?: Yes Exam Const General: cooperative, healthy appearing, comfortable, no acute distress and anxious (Tearful) Orientation: alert and awake [facility] Head: normal to inspection, normocephalic and atraumatic Mouth: moist mucous membranes Eyes Conjunctivae: conjunctivae normal Neck Neck: normal visual inspection, trachea midline and supple Resp Effort & Inspection: normal respiratory effort and able to speak in complete sentences Cardio Rate: regular rate Rhythm: regular rhythm Skin General skin exam: no rashes or lesions noted Neuro General: patient alert, patient awake, moves all extremities and no focal motor deficits Gait: antalgic Motor: muscle tone normal throughout and strength 5/5 throughout Sensory Exam: no sensory deficits noted Extrem Left lower extremity: normal capillary refill, ankle Details: abnormal to inspection, tenderness Location: of the lateral malleolus and posteriorly, swelling Details: laterally, abnormal ROM (Decreased secondary to discomfort. Full plantar and dorsiflexion) and ecchymosis (Lateral) and foot Details: normal capillary refill and normal to inspection Psych Appearance: grossly normal Mental Status: mental status grossly normal Course Vital Signs Vital signs: Vital Signs Temperature 36.5 C 12/18/19 20:02 Pulse 83 12/18/19 20:02 Respiratory Rate 20 12/18/19 20:02 Blood Pressure 125/81 12/18/19 20:02 Pulse Oximetry 100 12/18/19 20:02 Temperature 36.5 C 12/18/19 20:02 Temperature Source Temporal Artery Scan 12/18/19 20:02 Pulse 83 12/18/19 20:02 Respiratory Rate 20 12/18/19 20:02 Respiratory Effort Non-Labored 12/18/19 20:06 Blood Pressure 125/81 12/18/19 20:02 Pulse Oximetry 100 12/18/19 20:02 Oxygen Delivery Method Room Air 12/18/19 20:02 Oxygen Flow Rate 0 12/18/19 20:02 Pain Level 9 12/18/19 20:08
--- NOTE | 2019-12-18 20:38 | DI.VRAD_ITS ---
PROCEDURE INFORMATION: Exam: XR Left Ankle Exam date and time: 12/18/2019 8:27 PM Age: 29 years old Clinical indication: Ankle; Left; Patient HX: Twist/fall, pain TECHNIQUE: Imaging protocol: XR Left ankle. Views: 3 or more views. COMPARISON: No relevant prior studies available. FINDINGS: Bones/joints: There is a small plantar heel spur arising from the inferior calcaneus. There is a 5 mm well corticated osseous finding along the distal margin of the lateral malleolus. An old avulsion fragment or accessory ossicle is suspected. There is also an adjacent 2 mm apparently well corticated osseous finding just distal to the lateral malleolus. An old avulsion fragment or small accessory ossicle is suspected. An acute avulsion fragment is considered less likely but not definitively excluded. Otherwise, no acute fracture or dislocation is seen at the ankle. Soft tissues: There is soft tissue swelling at the ankle. IMPRESSION: 1. 5 mm well corticated osseous finding along the distal margin of the lateral malleolus with an appearance suggesting an old avulsion fragment or accessory ossicle. 2. 2 mm adjacent apparently well corticated osseous finding along the distal margin of the lateral malleolus. An old avulsion fragment or small accessory ossicle is suspected. An acute avulsion fragment is considered less likely but not definitively excluded. Otherwise, no acute fracture or dislocation is seen at the ankle. Dictated and Authenticated by: Rajendra Miller MD. Ordering:VERNON Irby MD
[2019-12-18] MEDS: oxyCODONE 5 mg/Acetaminophen 325 mg TAB 1 TAB PO (20:39)
== END 2019-12-18 21:20 | disposition home or self-care (01) ==
PROVIDERS: Emergency Provider Physician Assistant; PCP Nurse Practitioner
DX: S82.62XA Displaced fracture of lateral malleolus of left fibula, initial encounter for closed fracture (principal); W01.0XXA Fall on same level from slipping, tripping and stumbling without subsequent striking against object, initial encounter; X50.9XXA Other and unspecified overexertion or strenuous movements or postures, initial encounter
CPT/HCPCS: 27786; 73610; E0114; L4361

== ENCOUNTER 2019-12-27 11:25 | Outpatient (CLI) | payer MEDICAID, SELFPAY ==
--- NOTE | 2019-12-27 09:45 | DI.RAD_ITS ---
EXAM: XR ANKLE LT COMPLETE INDICATION: f/u fx. COMPARISON: CR,XR XR ANKLE LT COMPLETE from 12/18/2019 TECHNIQUE: 2D digital imaging was performed. FINDINGS: There has been no change in the smoothly marginated bony density beneath the distal fibula. There mattson s also been no change in the adjacent tiny bony fragment. The ankle mortise is well maintained. The re is a small heel spur. DATA REPOSITORY: RADIATION DOSE DELIVERED:
== END 2019-12-27 11:45 ==
PROVIDERS: Referring Provider Student in an Organized Health Care Education/Training Program; Visit Provider Orthopaedic Surgery
DX: S82.892A Other fracture of left lower leg, initial encounter for closed fracture (principal)
CPT/HCPCS: 73610

== ENCOUNTER 2020-01-24 11:32 | Outpatient (CLI) | payer MEDICAID, SELFPAY ==
--- NOTE | 2020-01-24 10:13 | DI.RAD_ITS ---
EXAM: XR ANKLE LT COMPLETE CLINICAL HISTORY: f/u fracture TECHNIQUE: COMPARISON: CR,XR XR ANKLE LT COMPLETE from 12/18/2019 CR XR ANKLE LT COMPLETE from 12/27/2019 FINDINGS: Three views were obtained. Small well-corticated osseous body is noted adjacent to the fibula consis tent with accessory ossicle. There is periosteal new bone formation adjacent to the posterior cortex of the tibia probably representing a healing nondisplaced posterior malleolar fracture. The ankle m ortise is well maintained. No additional bony abnormality seen. IMPRESSION: Healing nondisplaced posterior malleolar fracture of the tibia. RADIATION DOSE DELIVERED: Total DLP
== END 2020-01-24 11:52 ==
PROVIDERS: Referring Provider Student in an Organized Health Care Education/Training Program; Visit Provider Orthopaedic Surgery
DX: S82.55XD Nondisplaced fracture of medial malleolus of left tibia, subsequent encounter for closed fracture with routine healing (principal)
CPT/HCPCS: 73610

== ENCOUNTER 2020-06-11 20:33 | Outpatient (REF) | payer MEDICAID, SELFPAY ==
[2020-06-13 11:32] LABS: COVID-19 RT-PCR UVMMC Result Negative (Negative)
== END 2020-06-11 20:34 | disposition home or self-care (01) ==
LOC: LBN 20:33
PROVIDERS: Visit Provider Nurse Practitioner Adult Health
DX: Z20.822 Contact with and (suspected) exposure to COVID-19 (principal)
CPT/HCPCS: U0003

== ENCOUNTER 2020-08-16 05:55 | Emergency (ER) | payer MEDICAID, SELFPAY ==
--- NOTE | 2020-08-16 05:56 | ED.GENADUL_ITS ---
Discharge Plan Disposition Patient Disposition: HOME Condition: Improving Discharge Details Clinical Impression: Ovarian cyst Primary Care Provider: Yamila,Local ED Provider: Elizabeth Emery Home Meds and New Rx's Prescriptions: No Action No Known Home Meds RF: 0 Discharge Instructions Instructions: Ovarian Cyst (ED) Additional Instructions: Drink plenty of fluids and get plenty of rest. Alternate tylenol and motrin as needed and directed for pain. Call your conservation or heritage architect at [facility] today to schedule a follow-up appointment for reevaluation within the next week and for referral for outpatient pelvic ultrasound in the next 6 weeks to reassess your complex right-sided ovarian cyst. You can also discuss with her conservation or heritage architect whether to start control as this may decrease the possibility of pain returning from the cyst in the future. Return immediately to the emergency department if you develop any worsening or new concerning symptoms. Discharge Data Discharge Physician: Elizabeth Emery Medical Decision Making <Juan A Ty MD - Last Filed: 08/16/20 07:39> Patient with sudden onset of right adnexal pain with intercourse this morning. No vaginal bleeding. Prior history of ovarian cysts. Suspect ruptured cyst given diffuse lower abdominal tenderness suggesting possible peritoneal irritation from fluid/blood. Consider torsion. Unlikely to tolerate pelvic exam so deferred. Morphine ordered. CBC and BMP along with U/A and test ordered. Will obtain pelvic ultrasound. 07:40 - Labs are good and negative. Patient just returned from [place]. U/A still pending. Signed out to Dr. Emery. <Elizabeth Emery DO - Last Filed: 08/16/20 13:50> 0730 --please see Dr. Ty's note for initial presentation, exam and plan. Case endorsed to follow-up on pelvic ultrasound and urinalysis. Urinalysis appears heavily contaminated with negative leukocyte esterase and nitrites. Patient denies any urinary symptoms. 0930 -- Pelvic US notes: IMPRESSION: Complex 3.9 x 3.2 by 2.9 cm right ovarian cyst, which would warrant 6 week follow-up ultrasound to ensure interval resolution. Patient reassessed and she feels much better. She states she feels good to go home. Had some mild returning pain and was given a dose of Toradol with relief. Ultrasound reviewed with [employer] on-call who notes that this is likely a hemorrhagic luteum cyst and patient may experience this every couple months with ovulation and menses as she likely had bleeding into the cyst. control may assuage some of these symptoms but if patient is also able to understand the pain can be brief, she may not need to start control. This was discussed with patient and she does not like to take medication and has had control in the past and she would rather not take anything. She was advised that she can follow-up with her conservation or heritage architect at [facility] for further evaluation, discuss potential for starting control, and for repeat pelvic ultrasound in the next 6 weeks. Medical Records Medical records reviewed: Yes I reviewed the patient's medical records. Imaging Data Radiologic Study: Radiologist's impression: US Pelvis Complete, Transabdominal and US Pelvis, Transvaginal Exam date and time: 08/16/2020 6:45 AM Age: 30 years old Clinical indication: Other: Sudden onset right adnexal pain with intercourse TECHNIQUE: Imaging protocol: Real-time transabdominal and transvaginal pelvic ultrasound (complete) with image documentation. Transvaginal imaging was used for better evaluation of the endometrium, adnexa, and/or cervix. COMPARISON: US pelvis 11/28/2018 3:56 PM FINDINGS: Uterus/cervix: Uterus measures 11.2 by 6.3 by 8.0 cm. Endometrium measures 9 mm in diameter. Complex 1.2 cm nabothian cyst. Right adnexa: Complex 3.9 x 3.2 by 2.9 cm right ovarian cyst, which would warrant 6 week follow-up ultrasound to ensure interval resolution. Right ovarian measurements were not obtained. Limited assessment of ovarian blood flow. Left adnexa: Left ovarian measurements were not obtained. Limited assessment of ovarian blood flow. Intraperitoneal space: No significant free fluid. Urinary bladder: Not visualized. Other findings: Normal bilateral renal morphology. No hydronephrosis. IMPRESSION: Complex 3.9 x 3.2 by 2.9 cm right ovarian cyst, which would warrant 6 week follow-up ultrasound to ensure interval resolution. Lab Data Lab results reviewed: Yes I reviewed the patient's lab results. Labs: Laboratory Tests Range/Units 08/16/20 08/16/20 08/16/20 06:38 06:38 06:38 WBC (4.4-10.8) 10^3/uL 10.60 RBC (3.93-5.22) 10^6/uL 4.94 Hgb (11.2-15.7) g/dL 13.8 Hct (36.0-46.0) % 42.2 MCV (80-95) fL 85.4 MCH (27.0-33.0) pg 27.9 MCHC (32.0-36.0) % 32.7 RDW (11.7-14.6) % 13.2 Plt Count (130-400) 10^3/uL 227 MPV (8.0-11.0) fL 11.0 Immature Gran % 0.3 Neutrophils % 70.9 Lymphocytes % 22.5 Monocytes % 5.0 Eosinophils % 0.9 Basophils % 0.4 Nucleated RBC % % 0 Absolute Neutrophils (1.2-6.7) 10^3/uL 7.52 H Absolute Lymphocytes (1.2-3.4) 10^3/uL 2.38 Absolute Monocytes (0.1-0.8) 10^3/uL 0.53 Absolute Eosinophils (0.0-0.7) 10^3/uL 0.10 Absolute Basophils (0.0-0.2) 10^3/uL 0.04 Sodium (136-145) mmol/L 136 Potassium (3.5-5.1) mmol/L 3.7 Chloride (98-107) mmol/L 103 Carbon Dioxide (21.0-32.0) mmol/L 25.8 Anion Gap (3-11) mmol/L 7.2 BUN (7-18) mg/dL 12 Creatinine (0.55-1.02) mg/dL 0.9 Estimated GFR/1.73 m2 (mL/min/1.73m2) >= 60.00 Glucose (74-106) mg/dL 96 Calcium (8.5-10.1) mg/dL 8.8 Serum HCG, Qual Negative Urine Color (Yellow) Urine Clarity (Clear) Urine pH (5-8) Ur Specific Leonore (1.005-1.025) Urine Protein (Negative) mg/dL Urine Ketones (Negative) mg/dL Urine Blood (Negative) Urine Nitrite (Negative) Urine Bilirubin (Negative) Urine Urobilinogen (Up TO 0.2) EU/dL Ur Leukocyte Esterase (Negative) Urine RBC (0-2) HPF Urine WBC (0-5) HPF Ur Epithelial Cells (Negative) HPF Urine Crystals (Negative) HPF Urine Bacteria (Negative) HPF Urine Casts (Negative) LPF Urine Mucus (Negative) Ur Culture Indicated? Urine Glucose (Negative) mg/dL Range/Units 08/16/20 07:40 WBC (4.4-10.8) 10^3/uL RBC (3.93-5.22) 10^6/uL Hgb (11.2-15.7) g/dL Hct (36.0-46.0) % MCV (80-95) fL MCH (27.0-33.0) pg MCHC (32.0-36.0) % RDW (11.7-14.6) % Plt Count (130-400) 10^3/uL MPV (8.0-11.0) fL Immature Gran % Neutrophils % Lymphocytes % Monocytes % Eosinophils % Basophils % Nucleated RBC % % Absolute Neutrophils (1.2-6.7) 10^3/uL Absolute Lymphocytes (1.2-3.4) 10^3/uL Absolute Monocytes (0.1-0.8) 10^3/uL Absolute Eosinophils (0.0-0.7) 10^3/uL Absolute Basophils (0.0-0.2) 10^3/uL Sodium (136-145) mmol/L Potassium (3.5-5.1) mmol/L Chloride (98-107) mmol/L Carbon Dioxide (21.0-32.0) mmol/L Anion Gap (3-11) mmol/L BUN (7-18) mg/dL Creatinine (0.55-1.02) mg/dL Estimated GFR/1.73 m2 (mL/min/1.73m2) Glucose (74-106) mg/dL Calcium (8.5-10.1) mg/dL Serum HCG, Qual Urine Color (Yellow) Yellow Urine Clarity (Clear) Clear Urine pH (5-8) >= 9.0 H Ur Specific Leonore (1.005-1.025) 1.015 Urine Protein (Negative) mg/dL 30 H Urine Ketones (Negative) mg/dL 40 H Urine Blood (Negative) Negative Urine Nitrite (Negative) Negative Urine Bilirubin (Negative) Negative Urine Urobilinogen (Up TO 0.2) EU/dL 0.2 Ur Leukocyte Esterase (Negative) Negative Urine RBC (0-2) HPF Urine WBC (0-5) HPF Ur Epithelial Cells (Negative) HPF Many Urine Crystals (Negative) HPF Moderate amorphous Urine Bacteria (Negative) HPF Urine Casts (Negative) LPF Urine Mucus (Negative) Moderate Ur Culture Indicated? No/sq. contamination Urine Glucose (Negative) mg/dL Negative HPI <Juan A Ty MD - Last Filed: 08/16/20 07:39> General Mode of arrival: EMS . Date/Time Provider Initiated Documentation: 08/16/20 05:56 . Limitations to Documentation: no limitations . Information obtained by: patient and RN notes reviewed . HPI Narrative: Patient presents to ED by ambulance with sudden onset of severe right adnexal pain while having intercourse with this morning. [place] totally fine prior. Sudden severe pain with diaphoresis during intercourse. No bleeding. Denies as has vasectomy. No back pain. No nausea or vomiting. Pain better with Fentanyl that EMS gave but still present and uncomfortable. Related Data Home Medications Medication Instructions Recorded Confirmed Unknown [No Known Home Meds] 08/16/20 08/16/20 Allergies Allergy/AdvReac Type Severity Reaction Status Date / Time No Known Allergies Allergy Unverified 08/16/20 06:01 General ODALIS: 4 Review of Systems <Juan A Ty MD - Last Filed: 08/16/20 07:39> Constitutional Constitutional: Denies fever(s) Cardiovascular Cardiovascular: Denies chest pain and Denies dyspnea Respiratory Respiratory: Denies cough and Denies dyspnea Gastrointestinal Gastrointestinal: Denies nausea and Denies vomiting Genitourinary Genitourinary: Reports pelvic pain Musculoskeletal Musculoskeletal: Denies back pain PFSH <Juan A Ty MD - Last Filed: 08/16/20 07:39> Medical History Ovarian cyst Surgical History History of section S/P hernia repair Social History Smoking/Tobacco Use Status: Current every day Tobacco Type: cigarettes Smoking risk assessment performed?: Yes Alcohol Intake: current Alcohol Intake frequency: a few times a month Drug use: Daily Substance use type: marijuana Current gender identity: female Do you feel safe at home: Yes Do you feel safe in your relationship?: Yes Exam <Juan A Ty MD - Last Filed: 08/16/20 07:39> Narrative Exam Narrative: Const: Obese female who is uncomfortable. HEENT: NC/AT. Normal facial exam. Eyes: Normal conjunctiva and sclera. Neck: Supple. Trachea midline. Lungs: Normal respiratory effort. Lungs are clear. Cor: RRR without murmur/gallop. Good radial pulses. GI: Soft and ND. Diffusely tender across the lower abdomen. Does not tolerate deep palpation. Pelvic: Deferred to severity of pain patient experiencing. Neuro: A+O x 3. Normal speech, mentation, gait. Cranial nerves II - XII grossly intact. No gross motor or sensory deficit. Ext: No C/C/E. Skin: Warm and dry without rash. Sign Out <Juan A Ty MD - Last Filed: 08/16/20 07:39> Sign Out Data: Sign Out Comment: pending U/A and U/S Last updated by Juan A Ty MD at 08/16/20 07:44
[2020-08-16 05:58] VITALS: BP 119/73; PULSE 82; RESP 16; TEMP 36.3; O2SAT 100
--- NOTE | 2020-08-16 06:25 | DI.US_ITS ---
Exam(s) US PELVIS TRANSVAGINAL EXAM: US PELVIS TRANSVAGINAL CLINICAL HISTORY: sudden onset r adnexal pain with intercourse. TECHNIQUE: Transabdominal and transvaginal pelvic ultrasound was performed using standard protocol. COMPARISON: No exams were available for comparison FINDINGS: KIDNEYS: Kidneys are symmetric in size. No evidence of renal calculi. No evidence of hydronephrosis. No renal mass or cyst identified. UTERUS: Position: Anteverted. Size: 10.8 long by 6.8 AP by 7.8 transverse cm Endometrium: 0.9 cm. Normal for patient's menstrual status. Myometrium: Unremarkable. Cervix: Nabothian cysts. OVARIES: Right: 3.1 x 1.9 x 2.5 cm Cyst or mass: 4.1 x 2.9 x 3.3 cm complex right ovarian cyst. Left: 1.6 x 1.3 x 1.6 cm Cyst or mass: None. DOPPLER: Color: Symmetric and uniform flow to both ovaries. No hyperemia. Duplex: Normal ovarian arterial waveforms visualized. CUL-DE-SAC: Free fluid: None. Other: None. IMPRESSION: 1. Normal sonographic appearance of the kidneys. 2. Normal-appearing uterus with endometrial stripe within normal limits. 3. 4.1 x 2.9 x 3.3 cm complex right ovarian cyst. This may represent a hemorrhagic cyst. A 6 to 8 w [place] follow up ultrasound is recommended to document resolution. DATA REPOSITORY:
[2020-08-16] MEDS: MORPHine 10 MG/ML VIAL 4 MG IVP (06:40)
[2020-08-16] MEDS: Lactated Ringers 1,000 ML 200 ML IV (06:40)
[2020-08-16 06:48] LABS: Abs Immature Grans 0.03 10^3/uL (0.0-0.06); Absolute Basophil Count 0.04 10^3/uL (0.0-0.2); Absolute Lymphocyte Count 2.38 10^3/uL (1.2-3.4); Absolute Monocyte Count 0.53 10^3/uL (0.1-0.8); Absolute Neutrophil Count 7.52 10^3/uL (1.2-6.7); Basophils % 0.4; Eosinophils % 0.9; HCT 42.2 % (36.0-46.0); HGB 13.8 g/dL (11.2-15.7); Immature Grans % 0.3; Lymphocytes % 22.5; MCH 27.9 pg (27.0-33.0); MCHC 32.7 % (32.0-36.0); MCV 85.4 fL (80-95); Neutrophils % 70.9; Nucleated RBC 0 %; Platelet Count 227 10^3/uL (130-400); RBC 4.94 10^6/uL (3.93-5.22); RDW 13.2 % (11.7-14.6); RDW-SD 40.7 fL
[2020-08-16 06:57] LABS: Anion Gap 7.2 mmol/L (3-11); BUN 12 mg/dL (7-18); CO2 25.8 mmol/L (21.0-32.0); CREATININE 0.9 mg/dL (0.55-1.02); Calcium 8.8 mg/dL (8.5-10.1); Chloride 103 mmol/L (98-107); Glucose 96 mg/dL (74-106); Potassium 3.7 mmol/L (3.5-5.1); Sodium 136 mmol/L (136-145)
[2020-08-16 07:04] LABS: HCG Qual (Serum) Negative
[2020-08-16 07:48] VITALS: BP 117/71; PULSE 67; RESP 18; O2SAT 100
[2020-08-16 07:57] LABS: Bilirubin Negative (Negative); Blood Negative (Negative); Clarity Clear (Clear); Glucose Negative (Negative); Ketones 40 mg/dL (Negative); Leukocyte Esterase Negative (Negative); Nitrite Negative (Negative); Specific Gravity 1.015 (1.005-1.025); Urobilinogen 0.2 EU/dL (Up TO 0.2); pH >= 9.0 (5-8)
[2020-08-16 08:08] LABS: Epithelial Cells Many HPF (Negative)
[2020-08-16 08:10] LABS: C & S Indicated? No/Sq. Contamination; Crystals Moderate Amorphous HPF (Negative); Mucus Moderate (Negative)
--- NOTE | 2020-08-16 08:38 | DI.VRAD_ITS ---
PROCEDURE INFORMATION: Preliminary report Exam: US Pelvis Complete, Transabdominal and US Pelvis, Transvaginal Exam date and time: 08/16/2020 6:45 AM Age: 30 years old Clinical indication: Other: Sudden onset right adnexal pain with intercourse TECHNIQUE: Imaging protocol: Real-time transabdominal and transvaginal pelvic ultrasound (complete) with image documentation. Transvaginal imaging was used for better evaluation of the endometrium, adnexa, and/or cervix. COMPARISON: US pelvis 11/28/2018 3:56 PM FINDINGS: Uterus/cervix: Uterus measures 11.2 by 6.3 by 8.0 cm. Endometrium measures 9 mm in diameter. Complex 1.2 cm nabothian cyst. Right adnexa: Complex 3.9 x 3.2 by 2.9 cm right ovarian cyst, which would warrant 6 week follow-up ultrasound to ensure interval resolution. Right ovarian measurements were not obtained. Limited assessment of ovarian blood flow. Left adnexa: Left ovarian measurements were not obtained. Limited assessment of ovarian blood flow. Intraperitoneal space: No significant free fluid. Urinary bladder: Not visualized. Other findings: Normal bilateral renal morphology. No hydronephrosis. IMPRESSION: Complex 3.9 x 3.2 by 2.9 cm right ovarian cyst, which would warrant 6 week follow-up ultrasound to ensure interval resolution. Dictated and Authenticated by: Iam Cotter MD. Ordering:CLAYTON Velazco MD
[2020-08-16] MEDS: Ketorolac 30 MG/ML VIAL IVP (09:24)
[2020-08-16 09:26] VITALS: BP 123/86; PULSE 75; RESP 18; O2SAT 100
[2020-08-16 09:59] VITALS: BP 116/74; PULSE 67; RESP 18; TEMP 36.5; O2SAT 100
== END 2020-08-16 10:01 | disposition home or self-care (01) ==
PROVIDERS: Emergency Medicine; Emergency Provider Physician Assistant
DX: N83.291 Other ovarian cyst, right side (principal)
CPT/HCPCS: 36415; 80048; 96361; 96374; 96375; 99284; 76830; 76856; 81003; 81015; 84703; 85025; 99283; J1885; J2270

== ENCOUNTER 2024-06-20 07:09 | Emergency (ER) | payer BC, SELFPAY ==
[2024-06-20 07:16] VITALS: BP 156/89; PULSE 76; RESP 16; TEMP 36.6; O2SAT 100
--- NOTE | 2024-06-20 07:58 | ED.GENADUL_ITS ---
Discharge Plan Disposition Patient Disposition: Home Condition: Stable Discharge Details Chief Complaint: [employer] Clinical Impression: Right lower quadrant abdominal pain Primary Care Provider: Yamila,Local ED Provider: Jason Aguiar Home Meds and New Rx's Prescriptions: No Action No Known Home Meds Discharge Instructions Additional Instructions: Your blood work and CAT scan did not show any concerning findings at this time. You could have a small ovarian cyst which if you do it will resolve on its own. I recommend following up with either your primary care provider or [employer] if your symptoms continue within a week. If you feel more ill or have new symptoms such as persistent vomiting return to the emergency department for reevaluation HPI General Mode of arrival: ambulatory . Date/Time Provider Initiated Documentation: 06/20/24 07:26 . Limitations to Documentation: no limitations . Information obtained by: patient . History of Present Illness 33 year old F presents to the emergency department with the chief complaint of right lower pelvic pain, described as moderate, Quality is described as sharp, Patient reports no radiation. Patient started experiencing this day(s) (1) and it has been constant. No relieving factors improve symptom(s), No exacerbating factors reported . Patient notes denies fever/chills and nausea/vomiting. Patient did receive the following treatments prior to arrival, none Related Data Home Medications ?Medication ?Instructions ?Recorded ?Confirmed Unknown [No Known Home Meds] 08/16/20 06/20/24 Allergies Allergy/AdvReac Type Severity Reaction Status Date / Time No Known Allergies Allergy Unverified 06/20/24 07:16 General Stated Complaint: [employer] ODALIS: 3 Review of Systems All systems reviewed & are unremarkable except as noted in HPI and below Constitutional Constitutional: Denies chills, Denies fever(s) and Denies weakness Cardiovascular Cardiovascular: Denies chest pain and Denies dyspnea Respiratory Respiratory: Denies cough and Denies dyspnea Gastrointestinal Gastrointestinal: Denies nausea and Denies vomiting Genitourinary Genitourinary: Denies abnormal menses, Denies menorrhagia, Reports pelvic pain and Denies vaginal discharge Integumentary/Breasts Skin/Breast: Denies rash Neurologic Neurologic: Denies weakness Exam Const General: no acute distress Orientation: alert HENMT Head: normal to inspection Ears: external ears normal General nose exam: external nose normal Mouth: moist mucous membranes Eyes General: appearance normal, both eyes and all related structures Neck Neck: normal visual inspection Resp Effort & Inspection: normal respiratory effort and able to speak in complete sentences Cardio Rate: regular rate GI Palpation: soft, not firm and no guarding Skin General skin exam: no rashes or lesions noted Neuro General: patient alert and patient oriented x3 Extrem General: normal to inspection Psych Mental Status: mental status grossly normal Course Vital Signs Vital signs: Vital Signs Temperature 36.6 C 06/20/24 07:16 Pulse 76 06/20/24 07:16 Respiratory Rate 16 06/20/24 07:16 Blood Pressure 156/89 H 06/20/24 07:16 Pulse Oximetry 100 06/20/24 07:16 Temperature 36.6 C 06/20/24 07:16 Temperature Source Oral 06/20/24 07:16 Pulse 76 06/20/24 07:16 Respiratory Rate 16 06/20/24 07:16 Blood Pressure 156/89 H 06/20/24 07:16 Blood Pressure Position Sitting 06/20/24 07:16 Pulse Oximetry 100 06/20/24 07:16 Oxygen Delivery Method Room Air 06/20/24 07:16 Oxygen Flow Rate 0 06/20/24 07:16 Pain Level 8 06/20/24 07:16 Comment last tylenol yesterday 06/20/24 07:16 Medical Decision Making 33-year-old female with a history of prior ovarian cysts comes in with right lower pelvic pain since last night. Denies any nausea vomiting or other symptoms such as chest pain or difficulty breathing. Denies any vaginal bleeding or discharge. She is stable on arrival. She has tenderness in the rig ht lower pelvic area, no distended abdomen or peritoneal signs. Given the location of the pain and concern for ovarian cyst versus torsion. Will check a CBC, CMP, hCG, lipase and also an ultrasound to evaluate for ovarian cyst versus torsion. Labs unremarkable, patient is stable, ultrasound not able to be done for another 2 hours, discussed proceeding with CT versus waiting for the ultrasound, I did advise that I would likely still her to have an ultrasound and after discussing risk benefits with the radiation of a CT she like to proceed with CT at this time. CT shows no acute findings, no obvious ovarian mass or cyst. Patient's pain is improved with Toradol, discussed that ultrasound may show a small cyst but there would be no intervention of this and my concern for torsion is very low given she has no mass on her ovary. After discussion she would like to defer having an ultrasound. She will follow-up with her [employer] and return precautions given Differential Diagnosis Differential Diagnosis: Ovarian cyst, torsion Medical Records Medical records reviewed: Yes I reviewed the patient's medical records. Lab Data Lab results reviewed: Yes I reviewed the patient's lab results. Quality:SDOH Health Related Social Needs: No Data to Display PFSH All Active Problems (Updated 06/20/24 @ 10:00 by Jason Aguiar MD) Right lower quadrant abdominal pain (Acute) Ovarian cyst (Acute) Urinary tract infectious disease (Active 08/31/12) Normal (Active 08/31/12) Term section (Active 09/14/12) Failure of descent. Macrosomia. Post-term -41 weeks C/Section 09/[address] Salcedo. Medical History Ovarian cyst Surgical History History of section S/P hernia repair Social History Smoking/Tobacco Use Status: Current every day Tobacco Type: cigarettes Smoking risk assessment performed?: Yes Alcohol Intake: current Alcohol Intake frequency: a few times a month Drug use: Daily Substance use type: marijuana Housing: apartment Current gender identity: female Do you feel safe at home: Yes Do you feel safe in your relationship?: Yes
[2024-06-20 08:05] LABS: Abs Immature Grans 0.01 10^3/uL (0.0-0.06); Absolute Basophil Count 0.02 10^3/uL (0.0-0.2); Absolute Eosinophil Count 0.05 10^3/uL (0.0-0.7); Absolute Monocyte Count 0.32 10^3/uL (0.1-0.8); Absolute Neutrophil Count 4.44 10^3/uL (1.2-6.7); Basophils % 0.3 %; Eosinophils % 0.8 %; HCT 42.8 % (36.0-46.0); HGB 13.6 g/dL (11.2-15.7); Immature Grans % 0.2 %; Lymphocytes % 22.4 %; MCH 27.3 pg (27.0-33.0); MCHC 31.8 % (32.0-36.0); MCV 86 fL (80-95); MPV 11.1 fL (8.0-11.0); Monocytes % 5.1 %; Neutrophils % 71.2 %; Platelet Count 194 10^3/uL (130-400); RBC 4.99 10^6/uL (3.93-5.22); RDW 13.8 % (11.7-14.6); WBC 6.24 10^3/uL (4.4-10.8)
[2024-06-20] MEDS: Ketorolac 15 MG/ML VIAL IVP (08:13)
--- NOTE | 2024-06-20 08:15 | DI.CT_ITS ---
Exam(s) CT ABDOMEN PELVIS W EXAM: CT ABDOMEN PELVIS W x CLINICAL HISTORY: right lower abdominal/pelvic pain. TECHNIQUE: Imaging Protocol: Axial computed tomography images with coronal and sagittal reformatted images were created and reviewed CONTRAST MATERIAL: Intravenous: Omnipaque-350 100cc Oral: None COMPARISON: CT CT ABDOMEN PELVIS W from 11/28/2018 FINDINGS: VISUALIZED LUNG BASES: No nodules nor pleural effusions evident. ABDOMEN: There is no ascites. LIVER: There are no focal hepatic lesions evident. No dilated intrahepatic ducts. GALLBLADDER/BILIARY: No obvious gallbladder pathology. CBD is not dilated. PANCREAS: No evidence of pancreatic mass nor dilatation of the pancreatic duct. SPLEEN: Spleen is not enlarged. No obvious intrasplenic lesions. Splenic and portal veins are paten t. ADRENALS: There are no significant adrenal masses. KIDNEYS:No cysts evident. No solid renal masses. No calculi nor hydronephrosis.. ABDOMINAL AORTA: Abdominal aorta is not enlarged. LYMPH NODES:There is no retroperitoneal nor paraaortic adenopathy. ABDOMINAL WALL: No evidence of significant anterior abdominal wall nor inguinal hernia. GI: There is no evidence of bowel obstruction, free air, nor abscess. PELVIS: GI: No evidence of appendicitis.No evidence of sigmoid diverticulitis. LYMPH NODES: There is no intrapelvic nor inguinal adenopathy. REPRODUCTIVE: Uterus unremarkable. Right ovary unremarkable. Left ovary is difficult to locate. Th ere are no extraovarian adnexal new findings in the pelvis. URINARY BLADDER: No calculi nor obvious masses evident OSSEOUS: No fractures and no significant osseous lesions. IMPRESSION: 1. No significant acute findings in the abdomen and pelvis Called by myself to ER physician 06/20/2024 at 9:40 a.m. RADIATION DOSE DELIVERED: 966.88mGy.cm Total DLP DATA REPOSITORY: All CT scans at this facility are submitted to the National Radiology Data Registry (NRDR) Dose Index Registry (DIR) with the [employer] (ACR). RADIATION OPTIMIZATION: All CT scans at this facility use at least one of these dose optimization te chniques: automated exposure control; mA and/or kV adjustment per patient size (includes targeted exa ms where dose is matched to clinical indication); or iterative reconstruction.
[2024-06-20 08:24] LABS: ALT 28 U/L (14-59); AST 15 U/L (15-37); Albumin 3.7 g/dL (3.4-5.0); Alkaline Phosphatase 92 U/L (46-116); Anion Gap 8.7 mmol/L (3-11); BUN 13 mg/dL (7-18); Bilirubin, Total 0.51 mg/dL (0.2-1.0); CO2 27.3 mmol/L (21.0-32.0); CREATININE 0.9 mg/dL (0.55-1.02); Chloride 107 mmol/L (98-107); Estimated GFR 87.65 (mL/min/1.73m2); Glucose 97 mg/dL (74-106); Lipase 23 U/L (<78); Magnesium 1.8 mg/dL (1.8-2.4); Potassium 4.2 mmol/L (3.5-5.1); Sodium 143 mmol/L (136-145); Total Protein 6.9 g/dL (6.4-8.2)
[2024-06-20] MEDS: Normal Saline - Diluent 50 ML VIAL IJ (09:28)
[2024-06-20] MEDS: Omnipaque 350 MG/ML 500 ML BTL-Imaging package IJ (09:29)
[2024-06-20] MEDS: MORPHine IR 15 MG TAB, 4 TABS/BTL PO (10:09)
[2024-06-20 10:13] VITALS: BP 142/83; PULSE 60; RESP 16; O2SAT 100
[2024-06-20 10:41] LABS: Bilirubin Negative (Negative); Blood Large (Negative); Clarity Sl Cloudy (Clear); Glucose Negative (Negative); Ketones Negative (Negative); Leukocyte Esterase Negative (Negative); Nitrite Negative (Negative); Specific Gravity 1.025 (1.005-1.025); Urobilinogen 0.2 mg/dL (Up to 0.2)
[2024-06-20 10:42] LABS: Bacteria Few HPF (Negative); C & S Indicated? No; Casts Negative LPF (Negative); Crystals Negative HPF (Negative); Epithelial Cells Moderate HPF (Negative); Mucus Negative (Negative); RBC >50 HPF (0-2); WBC 0-2 HPF (0-5)
== END 2024-06-20 10:15 | disposition home or self-care (01) ==
PROVIDERS: Emergency Provider Emergency Medicine
DX: R10.31 Right lower quadrant pain (principal); F17.210 Nicotine dependence, cigarettes, uncomplicated
CPT/HCPCS: 36415; 80053; 81025; 83690; 96374; 99285; 74177; 81003; 81015; 83735; 85025; J1885

== ENCOUNTER 2024-12-12 09:32 | Emergency (ER) | payer BC, SELFPAY ==
[2024-12-12 09:43] VITALS: BP 135/85; PULSE 82; RESP 17; TEMP 36.7; O2SAT 98
[2024-12-12] MEDS: Lidocaine 2% Jelly 11 ML SYR UR (11:31)
--- NOTE | 2024-12-12 11:52 | DI.RAD_ITS ---
Exam(s) XR TOE LT GREAT EXAM: XR TOE LT GREAT CLINICAL HISTORY: left great toe injury. TECHNIQUE: 2D digital imaging was performed. Three images were obtained. COMPARISON: CR XR ANKLE LT COMPLETE from 01/24/2020 FINDINGS: BONES: No acute fracture is present. No bony destructive lesion is seen. JOINTS: No dislocation present. SOFT TISSUE: Normal. IMPRESSION: No evidence of acute fracture, dislocation, or subluxation. If symptoms persist, follow-up examination in 7-10 days may be obtained. DATA REPOSITORY: RADIATION DOSE DELIVERED:
--- NOTE | 2024-12-13 08:30 | ED.GENADUL_ITS ---
Discharge Plan Disposition Patient Disposition: Home Discharge Details Clinical Impression: Nail avulsion of toe Primary Care Provider: Yamila,Local ED Provider: Lady Redd Home Meds and New Rx's Prescriptions: No Action No Known Home Meds Discharge Instructions Instructions: Toe Injury (DC) Additional Instructions: Try to let your toe air dry as much as possible Keep the pressure dressing in place for 48 to 72 hours You may remove the dressing after that during the day to allow to air dry Your toenail will fall off and hopefully another nail will grow in its place Try to keep the great toenail on for as long as possible as this is protecting your nailbed Return with spreading redness, fever, worsening pain Tylenol and Motrin as needed for discomfort I have listed podiatry should you have any issues with your toe and wish for follow-up Stand Alone Forms: Work Release Referrals: Aida Roy DPM [[facility] STAFF PHYSICIAN, Podiatry] Discharge Data Discharge Date/Time-TO BE ENTERED AT DEPARTURE: 12/12/24 12:36 HPI General Date/Time Provider Initiated Documentation: 12/12/24 10:50 . HPI Narrative: This 34-year-old female presents with injury to her great toenail. She states that she ran into that shoe of her son and it dislodged her toenail on Wednesday. She presents secondary to pain and having difficulty walking with a shoe on and performing her job. She denies any signs of or any additional injuries such as fever chills or redness. Related Data Home Medications ?Medication ?Instructions ?Recorded ?Confirmed Unknown [No Known Home Meds] 08/16/20 0 12/12/24 Allergies Allergy/AdvReac Type Severity Reaction Status Date / Time No Known Allergies Allergy Unverified 12/12/24 09:47 General Stated Complaint: Orthopedic ODALIS: 4 Exam Narrative Exam Narrative: Left great toe with lifted toenail, the nail is in the plate, and this was cleansed and secured with gauze and tape. There is no active bleeding or laceration there is no erythema serosanguineous drainage noted Course Vital Signs Vital signs: Vital Signs Temperature 36.7 C 12/12/24 09:43 Pulse 82 12/12/24 09:43 Respiratory Rate 17 12/12/24 09:43 Blood Pressure 135/85 12/12/24 09:43 Pulse Oximetry 98 12/12/24 09:43 Temperature 36.7 C 12/12/24 09:43 Temperature Source Oral 12/12/24 09:43 Pulse 82 12/12/24 09:43 Respiratory Rate 17 12/12/24 09:43 Blood Pressure 135/85 12/12/24 09:43 Blood Pressure Position Sitting 12/12/24 09:43 Pulse Oximetry 98 12/12/24 09:43 Oxygen Delivery Method Room Air 12/12/24 09:43 Oxygen Flow Rate 0 12/12/24 09:43 Pain Level 7 12/12/24 09:47 Medical Decision Making Results: X-ray of great toe does not show evidence of acute fracture or foreign body per radiology interpretation of my review Assessment and plan: Patient with injury causing avulsion of her great toenail still in eponychial fold, will secure nail with tape and gauze and give patient a postop shoe for comfort. Work note supplied return precautions reviewed no evidence of secondary infection. Referral to podiatry if needed PFSH All Active Problems (Updated 12/12/24 @ 12:15 by SUZANNA French) Nail avulsion of toe (Acute) Ovarian cyst (Acute) Urinary tract infectious disease (Active 08/31/12) Normal (Active 08/31/12) Term section (Active 09/14/12) Failure of descent. Macrosomia. Post-term -41 weeks C/Section 09/[address] Salcedo. Medical History Ovarian cyst Surgical History History of section S/P hernia repair Social History Smoking/Tobacco Use Status: Current every day Tobacco Type: e-cigarettes Smoking risk assessment performed?: Yes Alcohol Intake: current Alcohol Intake frequency: a few times a month Drug use: Daily Substance use type: marijuana Housing: apartment Current gender identity: female Do you feel safe at home: Yes Do you feel safe in your relationship?: Yes
== END 2024-12-12 12:36 | disposition home or self-care (01) ==
PROVIDERS: Emergency Provider Physician Assistant
DX: S91.202A Unspecified open wound of left great toe with damage to nail, initial encounter (principal); W22.8XXA Striking against or struck by other objects, initial encounter
CPT/HCPCS: 99283 ×2; 73660